=== PATIENT | female | born 2000 | race African-American/Black ===

== ENCOUNTER 2022-02-24 04:20 | Inpatient (IN) ==
[2022-02-24] MEDS ORDERED: BUTORPHANOL 2 MG/ML VIAL IV PRN (04:27)
[2022-02-24] MEDS ORDERED: CARBOPROST TROMETHAMINE 250 MCG/ML AMP IM PRN (04:27)
[2022-02-24] MEDS ORDERED: OXYTOCIN/LR 20 UNIT/1,000 ML BAG IV ONE ×2 (04:27→15:43)
[2022-02-24] MEDS ORDERED: miSOPROStoL 200 MCG TABLET RECTAL PRN (04:27)
[2022-02-24] MEDS ORDERED: TRANEXAMIC ACID 1,000 MG in SODIUM CHLORIDE 0.9% 100 ML IV PRN (04:27)
[2022-02-24] MEDS ORDERED: MEPERIDINE 50 MG/1 ML VIAL IV PRN (04:27)
[2022-02-24] MEDS ORDERED: METHYLERGONOVINE 0.2 MG/1 ML AMP IM PRN (04:27)
[2022-02-24] MEDS ORDERED: OXYTOCIN/LR 20 UNIT/1,000 ML BAG IV SCH (04:30)
[2022-02-24] MEDS: LACTATED RINGERS 1,000 ML IV SCH ×2 (04:43→08:18)
[2022-02-24] MEDS ORDERED: AMPICILLIN INJ 2,000 MG in SODIUM CHLORIDE 0.9% 100 ML IV ONE (05:00)
[2022-02-24] MEDS ORDERED: AZITHROMYCIN 250 MG TABLET PO ONE (05:08)
[2022-02-24 05:19] LABS: Basophils % 0.4 % (0.0-0.8); Eosinophils # 0.2 10*3/uL (0.0-0.87); Eosinophils % 1.5 % (0.00-10.9); Hematocrit 32.7 VOL% (35.7-47.0); Immature Granulocytes % 0.5 %; Immature Granulocytes Absolute 0.05 #; Lymphocytes # 2.3 10*3/uL (1.4-4.0); Lymphocytes % 22.6 % (21.3-54.2); Mean Corpuscular HGB Conc 30.6 GM/DL (32-36); Mean Corpuscular Volume 88.1 FL (87-102); Mean Platelet Volume 11.7 FL (9.6-12.0); Monocytes # 0.5 10*3/uL (0.11-0.8); Monocytes % 5.3 % (1.7-12.7); Neutrophils % 69.7 % (38.7-73.9); Platelet Count 231 T/CUMM (130-400); Red Blood Count 3.71 MC/CUMM (3.8-5.5); Red Cell Distribution Width 13.5 % (9.3-17.3); White Blood Count 10.3 T/CUMM (4-12)
[2022-02-24 05:38] LABS: Alanine Aminotransferase 13 U/L (13-56); Albumin 2.5 G/DL (3.4-5.0); Alkaline Phosphatase 276 U/L (45-117); Aspartate Amino Transferase 19 U/L (0-37); Bilirubin,Total < 0.39 MG/DL (0.20-1.00); Blood Urea Nitrogen 7 MG/DL (7-18); Carbon Dioxide 22 MMOL/L (21-32); Chloride 110 MMOL/L (98-107); Glucose 88 MG/DL (74-106); Osmolality,Calculated 273.5 MOS/KG (273-304); Potassium 3.5 MMOL/L (3.5-5.1); Sodium 139 MMOL/L (136-145)
[2022-02-24 06:07] LABS: HIV Antigen/Antibody Result Nonreactive (Nonreactive)
[2022-02-24] MEDS: ONDANSETRON 4 MG/2 ML VIAL IV PRN ×2 (06:08→12:17)
[2022-02-24 06:24] LABS: Hepatitis B Surface Ag Quant < 0.10 Index; Hepatitis B Surface Ag Result Non-Reactive (NonReactive)
[2022-02-24 06:26] LABS: Rubella Antibody IgG Result Reactive (NonReactive)
[2022-02-24] MEDS ORDERED: ePHEDrine 50 MG/ML VIAL IV PRN (07:48)
[2022-02-24] MEDS ORDERED: FAMOTIDINE 20 MG/2 ML VIAL IV ONE ×2 (07:48→07:51)
[2022-02-24] MEDS ORDERED: CITRIC ACID/SODIUM CITRATE 30 ML UDCUP PO ONE (07:48)
[2022-02-24] MEDS ORDERED: LACTATED RINGERS 1,000 ML IV ONE (07:48)
[2022-02-24] MEDS ORDERED: NALOXONE 0.4 MG/ML VIAL IV PRN (07:48)
[2022-02-24] MEDS ORDERED: CITRIC ACID/SODIUM CITRATE 30 ML UDCUP ONE (07:51)
[2022-02-24] MEDS ORDERED: fentaNYL 2 MCG/ROPIV 0.2% EPID 100 ML EPIDURAL SCH (08:00)
[2022-02-24] MEDS ORDERED: AMPICILLIN INJ 1,000 MG in SODIUM CHLORIDE 0.9% 100 ML IV SCH (09:00)
[2022-02-24 09:54] LABS: Bacteria,Urine Occasional /HPF (Few); Mucus,Urine Occasional /LPF (Occasional); RBC,Urine 1 /HPF (0-4)
[2022-02-24 09:55] LABS: Bilirubin,Urine Negative (Negative); Blood, Urine Negative (Negative); Glucose,Urine (UA) Negative (Negative); Ketones,Urine Negative (Negative); Nitrite,Urine Negative (Negative); Protein,Urine Negative (Negative); Urine Appearance Clear (Clear); Urine Color Yellow (Yellow); Urine Urobilinogen 0.2 eU/dL (<2.0)
[2022-02-24] MEDS ORDERED: miSOPROStoL 200 MCG TABLET ONE (11:17)
[2022-02-24] MEDS ORDERED: METHYLERGONOVINE 0.2 MG/1 ML AMP ONE (11:18)
[2022-02-24] MEDS ORDERED: CARBOPROST TROMETHAMINE 250 MCG/ML AMP IM ONE (11:18)
[2022-02-24 11:43] LABS: Cord Venous Blood HCO3 22.2 MMOL/L; Cord Venous Blood PCO2 47.3 MMHG; Cord Venous Blood PO2 36.3
[2022-02-24] MEDS ORDERED: ACETAMINOPHEN 325 MG TABLET PO PRN (15:43)
[2022-02-24] MEDS ORDERED: oxyCODONE/ACETAMINOPHEN 5-325 MG TABLET PO PRN ×2 (15:43)
[2022-02-24] MEDS ORDERED: DIPH/TET/ACEL PERT BOOSTER VACCINE 0.5 ML VIAL IM ONE (15:43)
[2022-02-24] MEDS ORDERED: MEASLES/MUMPS/RUBELLA VACCINE 0.5 ML VIAL SUBCUT ONE (15:43)
[2022-02-24] MEDS ORDERED: BENZOCAINE 20%/MENTHOL 0.5% SPRAY 56 GM CAN TOP PRN (15:43)
[2022-02-24] MEDS ORDERED: BISACODYL 10 MG SUPP RECTAL PRN (15:43)
[2022-02-24] MEDS ORDERED: HYDROCORTISONE 2.5% RECTAL CREAM 30 GM TUBE TOP PRN (15:43)
[2022-02-24] MEDS ORDERED: RHO(D) IMMUNE GLOBULIN 300 MCG SYRINGE IM ONE (15:43)
[2022-02-24] MEDS ORDERED: WITCH HAZEL PADS 100/JAR TOP PRN (15:43)
[2022-02-24] MEDS ORDERED: LANOLIN 50% CREAM 0.3 OZ TUBE TOP PRN (15:43)
[2022-02-24] MEDS: IBUPROFEN 800 MG TABLET PO PRN (15:58)
[2022-02-24] MEDS: DOCUSATE SODIUM 100 MG CAPSULE PO SCH (21:20)
[2022-02-25] MEDS: IBUPROFEN 800 MG TABLET PO PRN ×2 (03:07→11:06)
[2022-02-25 06:28] LABS: Basophils % 0.3 % (0.0-0.8); Eosinophils # 0.2 10*3/uL (0.0-0.87); Eosinophils % 1.5 % (0.00-10.9); Hematocrit 29.3 VOL% (35.7-47.0); Hemoglobin 9.4 GM/DL (12.0-16.0); Immature Granulocytes % 0.6 %; Immature Granulocytes Absolute 0.07 #; Mean Corpuscular HGB Conc 32.1 GM/DL (32-36); Mean Corpuscular Volume 87.2 FL (87-102); Mean Platelet Volume 11.3 FL (9.6-12.0); Monocytes # 0.4 10*3/uL (0.11-0.8); Monocytes % 3.7 % (1.7-12.7); Neutrophils % 75.9 % (38.7-73.9); Platelet Count 178 T/CUMM (130-400); Red Blood Count 3.36 MC/CUMM (3.8-5.5); Red Cell Distribution Width 13.7 % (9.3-17.3); White Blood Count 11.2 T/CUMM (4-12)
[2022-02-25] MEDS: DOCUSATE SODIUM 100 MG CAPSULE PO SCH ×2 (09:18→21:11)
[2022-02-26] MEDS: DOCUSATE SODIUM 100 MG CAPSULE PO SCH (08:00)
[2022-02-26 09:01] VITALS: BP 124/81
== END 2022-02-26 12:05 | disposition home or self-care (01) | DRG 560 ==
LOC: N.LD 04:20 → N.OB 14:46
PROVIDERS: ADMIT Obstetrics & Gynecology; ATTEND Obstetrics & Gynecology